=== PATIENT | male | born 1975 | race African-American/Black ===

== ENCOUNTER → 2017-03-11 | Outpatient (CLI) | payer OTHER ==
--- NOTE | 2017-03-11 12:36 | RADIOLOGY REPORT (SQ) ---
EXAM DESCRIPTION: FOOT LEFT COMPLETE COMPLETED DATE/TIME: 03/11/2017 11:47 am REASON FOR STUDY: PAIN IN LEFT FOOT AND ANKLE (M79.672, M79.572) M79.672 PAIN IN LEFT FOOT M25.572 PAIN IN LEFT ANKLE AND JOINTS OF LEFT FOOT COMPARISON: None. NUMBER OF VIEWS: Three views. TECHNIQUE: AP, lateral and oblique radiographic images acquired of the left foot. LIMITATIONS: None. FINDINGS: MINERALIZATION: Normal. BONES: No acute fracture or dislocation. No worrisome bone lesions. JOINTS: No effusions. SOFT TISSUES: No soft tissue swelling. No foreign body. OTHER: No other significant finding. IMPRESSION: NEGATIVE STUDY OF THE LEFT FOOT. NO RADIOGRAPHIC EVIDENCE OF ACUTE INJURY. TECHNICAL DOCUMENTATION: JOB ID: [email or web address]- All Rights Reserved
--- NOTE | 2017-03-11 12:37 | RADIOLOGY REPORT (SQ) ---
EXAM DESCRIPTION: ANKLE LEFT COMPLETE COMPLETED DATE/TIME: 03/11/2017 11:47 am REASON FOR STUDY: PAIN IN LEFT FOOT AND ANKLE (M79.672, M79.572) M79.672 PAIN IN LEFT FOOT M25.572 PAIN IN LEFT ANKLE AND JOINTS OF LEFT FOOT COMPARISON: None. NUMBER OF VIEWS: Three views. TECHNIQUE: AP, lateral, and oblique radiographic images acquired of the left ankle. LIMITATIONS: None. FINDINGS: MINERALIZATION: Normal. BONES: No acute fracture or dislocation. No worrisome bone lesions. JOINTS: No effusions. SOFT TISSUES: No soft tissue swelling. No foreign body. OTHER: No other significant finding. IMPRESSION: NEGATIVE STUDY OF THE LEFT ANKLE. NO RADIOGRAPHIC EVIDENCE OF ACUTE INJURY. TECHNICAL DOCUMENTATION: JOB ID: [email or web address]- All Rights Reserved
== END ==
LOC: RAD 11:24
DX: M79.672 Pain in left foot (principal); M25.572 Pain in left ankle and joints of left foot